=== PATIENT | female | born 1970 | race Caucasian/White ===

== ENCOUNTER 2022-10-06 10:14 | Emergency (ER) | payer MEDICAID, SELFPAY ==
[2022-10-06 10:16] VITALS: PULSE 109; RESP 18; TEMP 36.2; O2SAT 97; BMI 23.1
[2022-10-06 10:23] VITALS: BP 153/70; PULSE 94; RESP 24; O2SAT 98
--- NOTE | 2022-10-06 10:24 | EKG12_ITS ---
Test Reason : OD Blood Pressure : / mmHG Vent. Rate : 089 BPM Atrial Rate : 089 BPM P-R Int : 158 ms QRS Dur : 152 ms QT Int : 412 ms P-R-T Axes : 056 -20 108 degrees QTc Int : 501 ms Normal sinus rhythm Left bundle branch block Abnormal ECG Confirmed by EUGENIA JOHNSON, TA ([id number]), editor farm journal DARIUS COURTNEY ([id number]) on 10/11/2022 11:44:48 AM Referred By: KIRA Confirmed By:TA BELLO MD
[2022-10-06 12:07] VITALS: BP 113/78; PULSE 97; RESP 18; O2SAT 99
--- NOTE | 2022-10-06 12:23 | EX.ED.DYSGE1 ---
HPI History of Present Illness Chief Complaint: Overdose Informant: patient Onset/Context/Timing Onset: Today Narrative Narrative: Patient presents status post heroin overdose. She is a history of heroin abuse. She had been clean for 5 years and then relapsed in May. She got clean again but has been using for the past 2 days. She states she snorted heroin this morning and then got in her car. She knew that she was getting too sleepy so she pulled over to the side of the road. She was found unresponsive in her vehicle. EMS gave nasal Narcan and patient has been alert since that time. Patient denies that this is an attempt to hurt herself. She is already hooked up with support services and texted her sponsor while here in the emergency room. [facility] Medical History Myocardial infarct Traumatic tear of thoracic aorta Home Medications aspirin 81 mg capsule 81 mg PO DAILY 10/06/22 [History Last Taken Unknown] atorvastatin 10/06/22 [History Last Taken Unknown] metoprolol tartrate 10/06/22 [History Last Taken Unknown] warfarin 5 mg tablet 5 mg PO DAILY 10/06/22 [History Last Taken Unknown] Allergy/AdvReac Type Severity Reaction Status Date / Time prochlorperazine Allergy Other Verified 10/06/22 10:16 [From Compazine] Social History Smoking Status: Current every day smoker tobacco type: cigarettes ROS ROS ED Constitutional Constitutional ED: Denies chills or fever(s) Eyes Eyes: Denies change in vision ENT ENT ED: Denies rhinorrhea or sore throat Cardiovascular Cardiovascular: Denies chest pain or palpitations Respiratory/Chest Respiratory/Chest: Denies cough or dyspnea Gastrointestinal Gastrointestinal: Denies abdominal pain, diarrhea, nausea or vomiting Genitourinary Genitourinary ED: Denies dysuria Musculoskeletal Musculoskeletal: Denies back pain or extremity pain Integumentary Denies Abrasions or rash Neurologic Neurologic: Denies headache(s) or weakness Allergic/Immunologic Allergic/Immunologic ED: Denies lip swelling or urticaria EXAM Physical Exam Const Vital Signs: 10/06/22 10:16 10/06/22 10:23 10/06/22 12:07 Temperature 97.1 F L Temperature Source Temporal Pulse Rate 109 H 94 97 Respiratory Rate 18 24 H 18 Blood Pressure 153/70 H 113/78 Blood Pressure Mean 97 89 Pulse Ox 97 98 99 Oxygen Delivery Method Room Air Room Air Room Air Positive well nourished and well developed General Appearance ED: well developed HEENT Reports normocephalic and head/scalp atraumatic Eyes PERRL and EOMs intact bilaterally Neck supple Chest Wall inspection of chest normal and palpation of chest normal Resp normal respiratory effort and clear to auscultation bilaterally Cardio regular rate and regular rhythm GI normal to inspection, nondistended, normoactive bowel sounds Palpation: soft Back/Spine no CVA tenderness Extremity normal to inspection Neuro oriented x3 and no sensory deficits noted Sensorium / Orientation: alert Motor Exam: strength 5/5 throughout Psych mental status grossly normal Skin no rashes or lesions noted MDM MDM MDM Narrative Medical decision making narrative: EKG obtained upon arrival per nursing protocol. EKG Initial EKG: Attestation: I personally reviewed and interpreted this EKG as follows: Interpretation: Sinus Rhythm (Sinus 89 with left bundle branch block.) Treatment and Re-Evaluation Narrative: Patient has been observed here in the emergency room for 2 hours. She continues to be alert and appropriate. She has been in contact with her sponsor. I did advise her that we have services available here if she needs to return we are happy to help her. Discharge Plan Triage Chief Complaint: Overdose ED Provider: Naomi Camilo Dx/Rx/DC Orders Clinical Impression: Opiate overdose Instructions: ED Overdose, Opiate Prescriptions: No Action warfarin [Coumadin] 5 mg Tablet 5 mg PO DAILY aspirin 81 mg Capsule 81 mg PO DAILY atorvastatin metoprolol tartrate Primary Care Provider: INEZ SALINAS Referrals: INEZ SALINAS [Other] - As Needed Disposition Disposition: Home, Self Care
[2022-10-06 12:35] VITALS: BP 104/66; PULSE 82; RESP 16; O2SAT 99
== END 2022-10-06 12:36 | disposition home or self-care (01) ==
PROVIDERS: Emergency Provider Emergency Medicine; Visit Provider Emergency Medicine
DX: T40.2X4A Poisoning by other opioids, undetermined, initial encounter (principal); F17.210 Nicotine dependence, cigarettes, uncomplicated; I25.2 Old myocardial infarction; Z79.01 Long term (current) use of anticoagulants; Z79.82 Long term (current) use of aspirin
CPT/HCPCS: 93005; 99284